=== PATIENT | female | born 1995 | race Caucasian/White ===

== ENCOUNTER 2023-03-06 16:54 | Emergency (ER) | payer BC ==
[2023-03-06 17:33] LABS: APPEARANCE,URINE CLEAR; COLOR,URINE YELLOW; GLUCOSE,URINE NEGATIVE (NEGATIVE); KETONES,URINE >=80 mg/dL (NEGATIVE); LEUKOCYTE ESTERASE,URINE NEGATIVE (NEGATIVE); NITRITE,URINE NEGATIVE (NEGATIVE); OCCULT BLOOD,URINE NEGATIVE (NEGATIVE); PROTEIN,URINE 30 mg/dL (NEGATIVE); UROBILINOGEN,URINE 0.2 EU/dL (<2.0)
[2023-03-06 17:34] LABS: BILIRUBIN,URINE SMALL (NEGATIVE)
[2023-03-06 17:38] LABS: RBC,URINE 0-2 (0-2/HPF); SQUAMOUS EPITHELIAL CELLS,UR MODERATE; WBC,URINE 0-2 (0-5/HPF)
[2023-03-06 17:39] LABS: BACTERIA,URINE FEW (NEGATIVE); MUCUS,URINE MODERATE (NONE-MOD)
[2023-03-06] MEDS ORDERED: Sodium Chloride 0.9% 10 ML Syringe FLUSH PRN (18:15)
[2023-03-06] MEDS ORDERED: Sodium Chloride 0.9% 2.5 ML Syringe FLUSH PRN (18:15)
[2023-03-06] MEDS ORDERED: Ondansetron 4 MG/2 ML SDV IVPUSH STA ×2 (18:16→20:26)
[2023-03-06] MEDS ORDERED: Dextrose 5%-0.9% NaCl 1,000 ML IV STA (18:16)
[2023-03-06] MEDS ORDERED: Sodium Chloride 0.9% 1,000 ML IV STA (20:26)
[2023-03-06 20:42] LABS: BASOPHILS ABSOLUTE AUTO 0.05 K/uL (0.00-0.20); BASOPHILS PERCENT AUTO 0.3 % (0.0-1.0); EOSINOPHILS ABSOLUTE AUTO 0.01 K/uL (0.00-0.45); EOSINOPHILS PERCENT AUTO 0.1 % (0.0-6.0); HEMATOCRIT 41.6 % (37.0-47.0); HEMOGLOBIN 14.8 g/dL (12.0-16.0); IMMATURE GRAN ABSOLUTE AUTO 0.08 K/uL (0.00-0.05); IMMATURE GRAN PERCENT AUTO 0.5 % (0.0-0.4); LYMPHOCYTES ABSOLUTE AUTO 1.13 K/uL (1.00-4.80); LYMPHOCYTES PERCENT AUTO 6.6 % (24.0-44.0); MEAN CORPUSCULAR HEMOGLOBIN 31.7 pg (28.0-32.0); MEAN CORPUSCULAR HGB CONC 35.6 g/dL (32.0-36.0); MEAN CORPUSCULAR VOLUME 89.1 fL (83.0-99.0); MEAN PLATELET VOLUME 11.3 fL (9.4-12.3); MONOCYTES ABSOLUTE AUTO 0.36 K/uL (0.00-0.80); MONOCYTES PERCENT AUTO 2.1 % (0.0-8.0); NEUTROPHILS ABSOLUTE AUTO 15.51 K/uL (1.80-7.70); NEUTROPHILS PERCENT AUTO 90.4 % (41.0-71.0); PLATELET COUNT,PLT 280 K/uL (150-400); RED BLOOD CELL COUNT 4.67 M/uL (4.10-5.30); WHITE BLOOD CELL COUNT,WBC 17.14 K/uL (3.9-11.3)
[2023-03-06] MEDS ORDERED: Dextrose 5%-0.9% NaCl 1,000 ML IV ONE (21:08)
[2023-03-06 21:21] LABS: A/G RATIO 1.1 (0.9-1.6); ALBUMIN 4.1 g/dL (3.4-5.0); BILIRUBIN TOTAL 0.8 mg/dL (0.2-1.0); CALCIUM 9.3 mg/dL (8.5-10.1); CARBON DIOXIDE,CO2 22.7 mmol/L (21.0-32.0); CREATININE 0.7 mg/dL (0.6-1.0); EST CRCL DRUG DOSING (CG) 96.32 mL/min; POTASSIUM,K 3.8 mmol/L (3.5-5.1); PROTEIN TOTAL,TP 7.9 g/dL (6.4-8.2)
[2023-03-06] MEDS ORDERED: Promethazine 25 MG Tab PO STA (21:53)
== END 2023-03-06 22:27 | disposition home or self-care (01) ==
LOC: MW.ED 16:54
DX: O21.9 Vomiting of pregnancy, unspecified (principal); Z3A.08 8 weeks gestation of pregnancy
CPT/HCPCS: 36415; 80053; 81001; 81025; 83690; 83735; 85025; 96361; 96374; 99284; A9270; J2405; J3490; J7042

== ENCOUNTER 2023-04-16 13:38 | Emergency (ER) | payer BC ==
[2023-04-16] MEDS ORDERED: Lactated Ringers 1,000 ML IV ONE (14:51)
[2023-04-16] MEDS ORDERED: Sodium Chloride 0.9% 2.5 ML Syringe FLUSH PRN (14:51)
[2023-04-16] MEDS ORDERED: Sodium Chloride 0.9% 10 ML Syringe FLUSH PRN (14:51)
[2023-04-16] MEDS ORDERED: Metoclopramide 10 MG/2 ML SDV IVPUSH ONE (14:53)
[2023-04-16 15:13] LABS: BASOPHILS ABSOLUTE AUTO 0.02 K/uL (0.00-0.20); BASOPHILS PERCENT AUTO 0.3 % (0.0-1.0); HEMATOCRIT 38.9 % (37.0-47.0); HEMOGLOBIN 13.7 g/dL (12.0-16.0); IMMATURE GRAN ABSOLUTE AUTO 0.01 K/uL (0.00-0.05); IMMATURE GRAN PERCENT AUTO 0.1 % (0.0-0.4); LYMPHOCYTES ABSOLUTE AUTO 0.52 K/uL (1.00-4.80); LYMPHOCYTES PERCENT AUTO 7.7 % (24.0-44.0); MEAN CORPUSCULAR HEMOGLOBIN 31.6 pg (28.0-32.0); MEAN CORPUSCULAR HGB CONC 35.2 g/dL (32.0-36.0); MEAN CORPUSCULAR VOLUME 89.6 fL (83.0-99.0); MEAN PLATELET VOLUME 10.8 fL (9.4-12.3); MONOCYTES ABSOLUTE AUTO 0.92 K/uL (0.00-0.80); MONOCYTES PERCENT AUTO 13.5 % (0.0-8.0); NEUTROPHILS ABSOLUTE AUTO 5.32 K/uL (1.80-7.70); NEUTROPHILS PERCENT AUTO 78.4 % (41.0-71.0); PLATELET COUNT,PLT 210 K/uL (150-400); RED BLOOD CELL COUNT 4.34 M/uL (4.10-5.30); WHITE BLOOD CELL COUNT,WBC 6.79 K/uL (3.9-11.3)
[2023-04-16 15:31] LABS: A/G RATIO 0.9 (0.9-1.6); ALBUMIN 3.4 g/dL (3.4-5.0); BILIRUBIN TOTAL 0.3 mg/dL (0.2-1.0); CALCIUM 8.6 mg/dL (8.5-10.1); CARBON DIOXIDE,CO2 22.2 mmol/L (21.0-32.0); CREATININE 0.6 mg/dL (0.6-1.0); EST CRCL DRUG DOSING (CG) 112.38 mL/min; POTASSIUM,K 3.7 mmol/L (3.5-5.1); PROTEIN TOTAL,TP 7.2 g/dL (6.4-8.2)
[2023-04-16 17:06] LABS: APPEARANCE,URINE CLEAR; BILIRUBIN,URINE NEGATIVE (NEGATIVE); COLOR,URINE YELLOW; GLUCOSE,URINE NEGATIVE (NEGATIVE); KETONES,URINE >=80 mg/dL (NEGATIVE); LEUKOCYTE ESTERASE,URINE NEGATIVE (NEGATIVE); NITRITE,URINE NEGATIVE (NEGATIVE); OCCULT BLOOD,URINE NEGATIVE (NEGATIVE); PROTEIN,URINE NEGATIVE (NEGATIVE); UROBILINOGEN,URINE 0.2 EU/dL (<2.0)
[2023-04-16] MEDS ORDERED: Oseltamivir 75 MG Cap PO ONE (17:46)
[2023-04-16 18:22] LABS: CORONAVIRUS COVID-19 NAA NEGATIVE (NEGATIVE); INFLUENZA A NAA NEGATIVE (NEGATIVE); INFLUENZA B NAA POSITIVE (NEGATIVE); RESPIRATORY SYNCYTIAL VIR NAA NEGATIVE (NEGATIVE)
== END 2023-04-16 18:12 | disposition home or self-care (01) ==
LOC: MW.ED 13:38
DX: O21.9 Vomiting of pregnancy, unspecified (principal); O99.612 Diseases of the digestive system complicating pregnancy, second trimester; Z3A.14 14 weeks gestation of pregnancy; Z79.899 Other long term (current) drug therapy
CPT/HCPCS: 0241U; 36415; 80053; 81003; 83690; 85025; 96361; 96374; 99284; A9270; J2765; J3490; J7120

== ENCOUNTER 2023-10-16 08:53 | Inpatient (IN) | payer BC ==
[2023-10-16] MEDS ORDERED: Methylergonovine 0.2 MG/1 ML Amp IM PRN (09:28)
[2023-10-16] MEDS ORDERED: Water For Irrigation,Sterile 1,000 ML Container IRR PRN (09:28)
[2023-10-16] MEDS ORDERED: Misoprostol 200 MCG Tab PO PRN (09:28)
[2023-10-16] MEDS ORDERED: Sodium Chloride 0.9% 10 ML Syringe FLUSH PRN (09:28)
[2023-10-16] MEDS ORDERED: Lidocaine 1% 50 ML MDV INJECT PRN (09:28)
[2023-10-16] MEDS ORDERED: Terbutaline 1 MG/ML SDV SUBCUT PRN (09:28)
[2023-10-16] MEDS ORDERED: Sodium Chloride 0.9% 2.5 ML Syringe FLUSH PRN (09:28)
[2023-10-16] MEDS ORDERED: Tranexamic Acid IN NACL,ISO-OS 1,000 MG in Premix Bag 1 BAG IV PRN (09:28)
[2023-10-16] MEDS ORDERED: Carboprost Tromethamine 250 MCG/1 mL Vial IM PRN (09:28)
[2023-10-16] MEDS ORDERED: Sodium Chloride 0.9% 20 ML SDV IV PRN (09:28)
[2023-10-16] MEDS ORDERED: Oxytocin/0.9 % Sodium Chloride 30 UNIT/500 ML BAG IV SCH (09:30)
[2023-10-16 09:37] LABS: HEMATOCRIT 34.1 % (37.0-47.0); HEMOGLOBIN 11.4 g/dL (12.0-16.0); MEAN CORPUSCULAR HEMOGLOBIN 28.6 pg (28.0-32.0); MEAN CORPUSCULAR HGB CONC 33.4 g/dL (32.0-36.0); MEAN CORPUSCULAR VOLUME 85.7 fL (83.0-99.0); MEAN PLATELET VOLUME 11.8 fL (9.4-12.3); PLATELET COUNT,PLT 224 K/uL (150-400); RED BLOOD CELL COUNT 3.98 M/uL (4.10-5.30); WHITE BLOOD CELL COUNT,WBC 11.15 K/uL (3.9-11.3)
[2023-10-16] MEDS: Lactated Ringers 1,000 ML IV SCH (09:45)
[2023-10-16] MEDS: Ampicillin 2 GM in Sodium Chloride 0.9% 100 ML IV ONE (10:00)
[2023-10-16] MEDS ORDERED: ePHEDrine 50 MG/ML SDV IVPUSH PRN ×2 (10:00)
[2023-10-16] MEDS ORDERED: dexmedeTOMIDine HCl 200 MCG/2 ML SDV EPIDUR SCH (10:00)
[2023-10-16] MEDS ORDERED: Phenylephrine HCl In 0.9% NaCl 1 MG/10 ML Syringe IVPUSH PRN (10:00)
[2023-10-16] MEDS: Oxytocin/0.9 % Sodium Chloride 30 UNIT/500 ML BAG IV SCH (10:25)
[2023-10-16] MEDS: Ampicillin 1 GM in Sodium Chloride 0.9% 50 ML IV SCH (14:16)
[2023-10-16] MEDS: Butorphanol 2 MG/ML SDV IVPUSH PRN (14:17)
[2023-10-16] MEDS: Ropivacaine HCl/PF 400 MG in Premix Bag 1 BAG EPIDUR SCH (15:52)
[2023-10-16] MEDS: Ondansetron 4 MG/2 ML SDV IVPUSH PRN (16:29)
[2023-10-17] MEDS ORDERED: fentaNYL 100 MCG/2 ML SDV ONE (06:21)
[2023-10-17] MEDS ORDERED: Bupivacaine 0.5% 30 ML SDV ONE (06:22)
[2023-10-17] MEDS ORDERED: Azithromycin 500 MG Vial ONE (06:23)
[2023-10-17] MEDS ORDERED: droPERidol 5 MG/2 ML SDV ONE (06:23)
[2023-10-17] MEDS ORDERED: ceFAZolin 2 GM Vial ONE (06:23)
[2023-10-17] MEDS ORDERED: Dexamethasone 4 MG/ML 5 ML MDV ONE (06:23)
[2023-10-17] MEDS ORDERED: Ropivacaine 0.5% 5 MG/ML 30 ML SDV ONE (06:35)
[2023-10-17] MEDS ORDERED: Morphine PF 10 MG/10 ML SDV ONE (06:36)
[2023-10-17] MEDS ORDERED: dexmedeTOMIDine HCl 200 MCG/2 ML SDV ONE (06:44)
[2023-10-17] MEDS ORDERED: Water For Injection, Sterile 20 ML ONE (06:44)
[2023-10-17] MEDS ORDERED: Tranexamic Acid 1,000 MG/10 ML Vial ONE (07:01)
[2023-10-17] MEDS ORDERED: Lanolin 100% Cream 7 GM Tube TOP PRN (07:43)
[2023-10-17] MEDS ORDERED: Oxytocin 10 Units/1 ML SDV IM PRN (07:43)
[2023-10-17] MEDS ORDERED: Acetaminophen/oxyCODONE 325-5 MG Tab PO PRN ×2 (07:43→08:03)
[2023-10-17] MEDS ORDERED: Methylergonovine 0.2 MG/1 ML Amp IM PRN (07:43)
[2023-10-17] MEDS ORDERED: Bisacodyl 10 MG Supp RECTAL PRN (07:43)
[2023-10-17] MEDS ORDERED: diphenhydrAMINE 50 MG/ML SDV IVPUSH PRN ×2 (07:43→08:03)
[2023-10-17] MEDS ORDERED: Misoprostol 200 MCG Tab RECTAL PRN (07:43)
[2023-10-17 07:55] LABS: PH,UMBILICAL ARTERIAL 7.162 (7.18-7.38)
[2023-10-17 07:56] LABS: PH,UMBILICAL VENOUS 7.235 (7.25-7.45)
[2023-10-17] MEDS ORDERED: Naloxone 0.4 MG/ML SDV IVPUSH PRN (08:03)
[2023-10-17] MEDS ORDERED: Phenylephrine HCl In 0.9% NaCl 1 MG/10 ML Syringe IVPUSH PRN (08:03)
[2023-10-17] MEDS ORDERED: HYDROmorphone 2 MG/ML Syringe IVPUSH PRN (08:03)
[2023-10-17] MEDS ORDERED: droPERidol 5 MG/2 ML SDV IVPUSH PRN ×2 (08:03→08:08)
[2023-10-17] MEDS ORDERED: Ondansetron 4 MG/2 ML SDV IVPUSH PRN ×2 (08:03)
[2023-10-17] MEDS ORDERED: ePHEDrine 50 MG/ML SDV IVPUSH PRN (08:03)
[2023-10-17] MEDS ORDERED: Nalbuphine 10 MG/1 ML Vial IVPUSH PRN (08:03)
[2023-10-17] MEDS ORDERED: Morphine 2 MG/ML SYRINGE IVPUSH PRN (08:03)
[2023-10-17] MEDS ORDERED: fentaNYL 100 MCG/2 ML SDV IVPUSH PRN ×2 (08:03)
[2023-10-17] MEDS ORDERED: Albuterol 0.083% 2.5 MG/3 ML Neb Soln NEB PRN (08:03)
[2023-10-17] MEDS: Ondansetron 4 MG/2 ML SDV IVPUSH PRN ×2 (08:04→22:39)
[2023-10-17] MEDS ORDERED: Metoclopramide 10 MG/2 ML SDV IVPUSH PRN (08:07)
[2023-10-17] MEDS: Ketorolac 30 MG/ML SDV IVPUSH SCH (08:39)
[2023-10-17] MEDS: Metoclopramide 10 MG/2 ML SDV IVPUSH PRN (09:07)
[2023-10-17] MEDS: Lactated Ringers 1,000 ML IV SCH (11:33)
[2023-10-17] MEDS: Acetaminophen 1,000 MG in Premix Bag 1 BAG IV SCH ×2 (11:35→17:33)
[2023-10-17] MEDS: Docusate Sodium 100 MG Cap PO SCH (12:25)
[2023-10-17 13:53] LABS: HEMATOCRIT 30.1 % (37.0-47.0)
[2023-10-17] MEDS: Promethazine 25 MG Supp RECTAL ONE (15:04)
[2023-10-18 06:17] LABS: HEMATOCRIT 26.7 % (37.0-47.0); HEMOGLOBIN 8.5 g/dL (12.0-16.0)
[2023-10-18] MEDS: Acetaminophen/oxyCODONE 325-5 MG Tab PO PRN (14:39)
[2023-10-18] MEDS: Ferrous Sulfate 325 MG Tab PO SCH (17:42)
[2023-10-18] MEDS: Ibuprofen 800 MG Tab PO PRN (21:11)
== END 2023-10-19 15:26 | disposition home or self-care (01) | DRG 540 ==
LOC: OBSVTOIN 08:53 → MW.OB 08:53
PROVIDERS: ADMIT Obstetrics & Gynecology; ATTEND Obstetrics & Gynecology
PROC: 3E0R3BZ Introduction of Anesthetic Agent into Spinal Canal, Percutaneous Approach (ICD-10-PCS; 2023-10-17)
PROC: 00HU33Z Insertion of Infusion Device into Spinal Canal, Percutaneous Approach (ICD-10-PCS; 2023-10-17)
PROC: 10H07YZ Insertion of Other Device into Products of Conception, Via Natural or Artificial Opening (ICD-10-PCS; 2023-10-17)
PROC: 10D00Z1 Extraction of Products of Conception, Low, Open Approach (ICD-10-PCS; principal; 2023-10-17 07:00)
DX: O34.211 Maternal care for low transverse scar from previous cesarean delivery (principal); Z3A.39 39 weeks gestation of pregnancy; Z37.0 Single live birth; O90.81 Anemia of the puerperium; O62.1 Secondary uterine inertia; O99.824 Streptococcus B carrier state complicating childbirth; O36.63X0 Maternal care for excessive fetal growth, third trimester, not applicable or unspecified; D62 Acute posthemorrhagic anemia
CPT/HCPCS: 36415; 51701; 51702; 51703; 59025; 82803; 85014; 85018; 85027; 86592; 86850; 86900; 86901; A9270-GY; J0131; J0290; J0456; J0595; J0665; J0690; J1100; J1790; J1885; J2274; J2405; J2590; J2765; J2795; J3010; J3490; J7120

== ENCOUNTER 2024-08-12 16:59 | Emergency (ER) | payer BC ==
[2024-08-12] MEDS: Sodium Chloride 0.9% 1,000 ML IV ONE (18:49)
[2024-08-12 18:56] LABS: BASOPHILS ABSOLUTE AUTO 0.07 K/uL (0.00-0.20); EOSINOPHILS ABSOLUTE AUTO 0.17 K/uL (0.00-0.45); EOSINOPHILS PERCENT AUTO 2.3 % (0.0-6.0); HEMOGLOBIN 12.5 g/dL (12.0-16.0); IMMATURE GRAN ABSOLUTE AUTO 0.07 K/uL (0.00-0.05); LYMPHOCYTES ABSOLUTE AUTO 2.34 K/uL (1.00-4.80); LYMPHOCYTES PERCENT AUTO 32.2 % (24.0-44.0); MEAN CORPUSCULAR HEMOGLOBIN 30.9 pg (28.0-32.0); MEAN CORPUSCULAR HGB CONC 34.7 g/dL (32.0-36.0); MEAN CORPUSCULAR VOLUME 89.1 fL (83.0-99.0); MEAN PLATELET VOLUME 10.5 fL (9.4-12.3); MONOCYTES ABSOLUTE AUTO 0.65 K/uL (0.00-0.80); MONOCYTES PERCENT AUTO 8.9 % (0.0-8.0); NEUTROPHILS ABSOLUTE AUTO 3.97 K/uL (1.80-7.70); NEUTROPHILS PERCENT AUTO 54.6 % (41.0-71.0); PLATELET COUNT,PLT 389 K/uL (150-400); RED BLOOD CELL COUNT 4.04 M/uL (4.10-5.30); WHITE BLOOD CELL COUNT,WBC 7.27 K/uL (3.9-11.3)
[2024-08-12] MEDS: Iopamidol 755 Mg/ML 100 ML Bottle IVPUSH ONE (19:20)
[2024-08-12 19:29] LABS: A/G RATIO 0.9 (0.9-1.6); ALBUMIN 3.4 g/dL (3.4-5.0); BILIRUBIN TOTAL 0.3 mg/dL (0.2-1.0); CALCIUM 8.8 mg/dL (8.5-10.1); CARBON DIOXIDE,CO2 25.8 mmol/L (21.0-32.0); CREATININE 0.9 mg/dL (0.6-1.0); EST CRCL DRUG DOSING (CG) 74.26 mL/min; POTASSIUM,K 3.9 mmol/L (3.5-5.1)
== END 2024-08-12 21:17 | disposition home or self-care (01) ==
LOC: MW.ED 16:59
DX: R10.32 Left lower quadrant pain (principal); L02.211 Cutaneous abscess of abdominal wall; Z75.3 Unavailability and inaccessibility of health-care facilities; Z79.899 Other long term (current) drug therapy; Z88.6 Allergy status to analgesic agent
CPT/HCPCS: 36415; 74177; 80053; 83690; 83735; 85025; 96360; 99284; J7030; Q9967; 99283